=== PATIENT | female | born 1970 | race Caucasian/White ===

== ENCOUNTER → 2017-03-16 | Outpatient (CLI) | payer MEDICAID ==
--- NOTE | 2017-03-17 12:25 | RADIOLOGY REPORT PS360 ---
DIG MAMM-SCREEN NOY W/CAD CAD Screening COMPARISON: Digital mammograms 08/01/2015 and 02/14/2016 INDICATION: There is a history of breast cancer patient cousins diagnosed after menopause. TECHNIQUE: Standard CC and MLO images were obtained. R2 CAD reviewed. FINDINGS: Prominent diffuse fibroglandular densities are seen in both breasts and the findings are bilateral and symmetrical. There is no suspicious lesion in either breast and there are no suspicious microcalcifications. There are few benign-appearing calcifications in each breast. IMPRESSION: Moderate diffuse heterogenic breast density with no suspicious lesion seen recommend yearly follow-up BI-RADS CATEGORY: 2_Benign RECOMMENDED FOLLOWUP: 12M 12 MONTH FOLLOW-UP (A letter has been sent to the patient regarding results of the study.)
== END ==
LOC: RAD 09:43
DX: Z12.31 Encounter for screening mammogram for malignant neoplasm of breast (principal)